=== PATIENT | female | born 1985 | race Caucasian/White ===

== ENCOUNTER → 2017-01-13 | Outpatient (CLI) | payer OTHER ==
[~2017-01-13] MED LIST: CHOL20002 PO; HYDR-3240 PO; IBUP-1222 PO; IRON1TAB60 PO; LORA10CA PO; OMNIPAQUE 350 MG/ML, 75ML BOTTLE ONE; OXYC-302 PO; PREN1TAB27 PO; RANI150T8 PO
== END | disposition home or self-care (01) ==
LOC: CFH 09:06
PROVIDERS: ATTEND Family Medicine
DX: R22.2 Localized swelling, mass and lump, trunk (principal); R53.83 Other fatigue; K91.2 Postsurgical malabsorption, not elsewhere classified; Z68.39 Body mass index [BMI] 39.0-39.9, adult
CPT/HCPCS: 71260; Q9967

== ENCOUNTER 2017-11-20 15:42 | Emergency (ER) | payer OTHER ==
[~2017-11-20] VITALS: Ht 177.8 cm; Wt 135.3 kg
[~2017-11-20 15:42] MED LIST changes: -OMNIPAQUE 350 MG/ML, 75ML BOTTLE ONE; +RANI150T23 PO; -RANI150T8 PO
[2017-11-20] MEDS ORDERED: IRON15TA3 PO (16:20)
[2017-11-20] MEDS ORDERED: MULT-516 PO (16:20)
[2017-11-20] MEDS ORDERED: BIRTH CONTROL (16:21)
[2017-11-20] MEDS ORDERED: LORA1TAB46 PO (16:21)
[2017-11-20] MEDS ORDERED: SODIUM CHLORIDE 0.9% 1,000ML IVBOLUS ONE (16:30)
[2017-11-20] MEDS ORDERED: PROCHLORPERAZINE 5 MG/ML, 2ML IVPush ONE (16:30)
[2017-11-20] MEDS ORDERED: SODIUM CHLORIDE FLUSH 10ML SYR IVF ONE (16:30)
[2017-11-20] MEDS ORDERED: MORPHINE SULFATE 4 MG/ML, 1ML IVPush ONE (16:30)
[2017-11-20] MEDS ORDERED: PANTOPRAZOLE 40 MG IV IVPush ONE (16:30)
[2017-11-20 17:00] LABS: BASOPHILS # (AUTO) 0.09 x10^3/uL (0-0.1); BASOPHILS % (AUTO) 1 % (0-1); EOSINOPHILS # (AUTO) 0.22 x10^3/uL (0-0.4); EOSINOPHILS % (AUTO) 2 % (1-7); LYMPHOCYTES # (AUTO) 2.16 x10^3/uL (1-3.4); LYMPHOCYTES % (AUTO) 16 % (22-44); MD NO; MEAN CORPUSCULAR HEMOGLOBIN 27.6 pg (27.0-34.8); MEAN CORPUSCULAR HGB CONC 33.6 g/dL (32.4-35.8); MEAN CORPUSCULAR VOLUME 82.2 fL (80-100); MEAN PLATELET VOLUME 8.8 fL (7.4-10.4); MONOCYTES % (AUTO) 6 % (2-9); NEUTROPHILS # (AUTO) 10.72 x10^3/uL (1.8-6.8); NEUTROPHILS % (AUTO) 77 % (42-75); PLATELET COUNT 296 x10^3/uL (130-400); RED BLOOD COUNT 4.65 x10^6/uL (3.82-5.3); RED CELL DISTRIBUTION WIDTH 13.3 % (9.6-15.2)
[2017-11-20 17:07] LABS: ALANINE AMINOTRANSFERASE 14 U/L (12-78); ALBUMIN 3.3 g/dL (3.4-5.0); ANION GAP 8 mmol/L (5-15); CALCIUM 8.3 mg/dL (8.5-10.1); CHLORIDE 111 mmol/L (98-107); CREATININE 0.96 mg/dL (0.55-1.02)
[2017-11-20 17:10] LABS: ALKALINE PHOSPHATASE 96 U/L (45-117); BILIRUBIN,TOTAL 0.6 mg/dL (0.2-1.0); TOTAL PROTEIN 6.8 g/dL (6.4-8.2)
[2017-11-20] MEDS ORDERED: MORPHINE SULFATE 4 MG/ML, 1ML ONE (17:32)
[2017-11-20] MEDS ORDERED: PROCHLORPERAZINE 5 MG/ML, 2ML ONE (17:32)
[2017-11-20] MEDS ORDERED: PANTOPRAZOLE 40 MG IV ONE (17:32)
[2017-11-20 18:40] VITALS: BP 149/90
[2017-11-20 18:49] LABS: HCG UR SG 1.008 (1.003-1.030); MICROSCOPIC AUTO
[2017-11-20 18:53] LABS: CULTURE INDICATED? YES
== END 2017-11-20 20:02 | disposition home or self-care (01) ==
LOC: ED 18:15
DX: R10.12 Left upper quadrant pain (principal); R42 Dizziness and giddiness
CPT/HCPCS: 36415; 80053; 81001; 81025; 83690; 85025; 85379; 87086; 93005; 96361; 96374; 96375; 99285; C9113; J0780; J7030

== ENCOUNTER 2019-05-28 14:25 | Outpatient (CLI) | payer OTHER ==
[~2019-05-28 14:25] MED LIST changes: +BIRTH CONTROL; -CHOL20002 PO; +CHOL200052 PO; +IRON15TA3 PO; +LORA1TAB46 PO; +MULT-516 PO; +RANI-467 PO; -RANI150T23 PO
[2019-05-28] MEDS ORDERED: vitamin D PO (14:53)
[2019-05-28] MEDS ORDERED: vitamin B12 PO (14:53)
[2019-05-28] MEDS ORDERED: LORA-702 PO (14:53)
[2019-05-28] MEDS ORDERED: iron PO (14:53)
[2019-05-28 15:19] LABS: BASOPHILS # (AUTO) 0.05 x10^3/uL (0-0.1); BASOPHILS % (AUTO) 0 % (0-1); EOSINOPHILS # (AUTO) 0.11 x10^3/uL (0-0.4); EOSINOPHILS % (AUTO) 1 % (1-7); LYMPHOCYTES # (AUTO) 2.14 x10^3/uL (1-3.4); LYMPHOCYTES % (AUTO) 19 % (22-44); MD NO; MEAN CORPUSCULAR HEMOGLOBIN 27.2 pg (27.0-34.8); MEAN CORPUSCULAR HGB CONC 31.3 g/dL (32.4-35.8); MEAN PLATELET VOLUME 8.8 fL (7.4-10.4); MONOCYTES # (AUTO) 0.59 x10^3/uL (0.2-0.8); MONOCYTES % (AUTO) 5 % (2-9); NEUTROPHILS # (AUTO) 8.13 x10^3/uL (1.8-6.8); NEUTROPHILS % (AUTO) 74 % (42-75); PLATELET COUNT 290 x10^3/uL (130-400); RED BLOOD COUNT 4.74 x10^6/uL (3.82-5.3); RED CELL DISTRIBUTION WIDTH 13.1 % (9.6-15.2)
[2019-05-28 15:26] LABS: MICROSCOPIC NOT IND
[2019-05-28 15:27] LABS: CULTURE INDICATED? NO
[2019-05-28 15:34] LABS: ALANINE AMINOTRANSFERASE 18 U/L (12-78); ALBUMIN 3.3 g/dL (3.4-5.0); ANION GAP 6 mmol/L (5-15); CALCIUM 8.1 mg/dL (8.5-10.1); CHLORIDE 112 mmol/L (98-107); CREATININE 0.98 mg/dL (0.55-1.02)
[2019-05-28 15:38] LABS: ALKALINE PHOSPHATASE 78 U/L (45-117); BILIRUBIN,TOTAL 0.2 mg/dL (0.2-1.0); TOTAL PROTEIN 6.9 g/dL (6.4-8.2)
== END 2019-05-28 23:59 | disposition home or self-care (01) ==
LOC: STAR 14:25
PROVIDERS: ATTEND Obstetrics & Gynecology
DX: Z01.818 Encounter for other preprocedural examination (principal); N92.0 Excessive and frequent menstruation with regular cycle
CPT/HCPCS: 36415; 80053; 81003; 84702; 85025

== ENCOUNTER 2019-06-12 05:28 | Day surgery (SDC) | payer OTHER ==
[~2019-06-12] VITALS: Ht 177.8 cm; Wt 130.6 kg
[~2019-06-12 05:28] MED LIST changes: +LORA-702 PO; +iron PO; +vitamin B12 PO; +vitamin D PO
[2019-06-12 06:31] VITALS: BP 135/97
[2019-06-12] MEDS ORDERED: LACTATED RINGERS 1,000 ML IV SCH (06:34)
[2019-06-12] MEDS ORDERED: BUPR-86 PO (06:36)
[2019-06-12] MEDS ORDERED: SILVER NITRATE STICK TP ONE (06:53)
[2019-06-12] MEDS ORDERED: BUPIVACAINE/PF-EPI 0.25% 1:200K ONE (06:53)
[2019-06-12 07:07] LABS: HCG UR SG 1.027 (1.003-1.030)
[2019-06-12] MEDS ORDERED: MIDAZOLAM 1 MG/ML, 2ML ONE (07:24)
[2019-06-12] MEDS ORDERED: FENTANYL PF 250 MCG/5ML ONE (07:24)
[2019-06-12] MEDS ORDERED: PROPOFOL 50 ML ONE ×3 (07:24→08:50)
[2019-06-12] MEDS ORDERED: GABAPENTIN 300 MG CAPSULE PO ONE (07:30)
[2019-06-12] MEDS ORDERED: ONDANSETRON ODT 8 MG PO ONE (07:30)
[2019-06-12] MEDS ORDERED: ACETAMINOPHEN 500 MG TABLET PO ONE (07:30)
[2019-06-12] MEDS ORDERED: SCOPOLAMINE PATCH, 1.5MG PATCH.TD72 TD ONE (07:30)
[2019-06-12] MEDS ORDERED: ONDANSETRON 2MG/ML, 2ML IV PRN (09:00)
[2019-06-12] MEDS ORDERED: ALBUTEROL SULFATE 2.5 MG/3 ML NPPB PRN (09:00)
[2019-06-12] MEDS ORDERED: PROCHLORPERAZINE 5 MG/ML, 2ML IV PRN (09:00)
[2019-06-12] MEDS ORDERED: OXYcodone 5 MG/5 ML ORAL.SOL UDC PO PRN (09:00)
[2019-06-12] MEDS ORDERED: LORazepam 2 MG/ML, 1ML IVPush PRN (09:00)
[2019-06-12] MEDS ORDERED: FENTANYL PF 100 MCG/2ML ONE ×2 (09:22→09:44)
[2019-06-12] MEDS: FENTANYL PF 100 MCG/2ML IV PRN ×3 (09:25→09:46)
[2019-06-12] MEDS ORDERED: OXYcodone 5 MG/5 ML ORAL.SOL UDC ONE (09:37)
[2019-06-12] MEDS ORDERED: ONDANSETRON 2MG/ML, 2ML ONE (09:52)
[2019-06-12] MEDS ORDERED: KETOROLAC 30 MG/1 ML IVPush PRN (10:30)
[2019-06-12] MEDS ORDERED: HYDROmorphone 2 MG/ML, 1ML IVPush PRN (10:30)
[2019-06-12] MEDS ORDERED: PROMETHAZINE 25 MG SUPP PR ONE (10:30)
== END 2019-06-12 12:15 | disposition home or self-care (01) ==
LOC: OUT 05:28
PROVIDERS: ATTEND Obstetrics & Gynecology
DX: Z30.2 Encounter for sterilization (principal); N92.0 Excessive and frequent menstruation with regular cycle; N94.6 Dysmenorrhea, unspecified; E66.01 Morbid (severe) obesity due to excess calories; F32.9 Major depressive disorder, single episode, unspecified; F41.9 Anxiety disorder, unspecified; J45.909 Unspecified asthma, uncomplicated; D64.9 Anemia, unspecified; Z79.1 Long term (current) use of non-steroidal anti-inflammatories (NSAID); Z79.899 Other long term (current) drug therapy; Z88.0 Allergy status to penicillin; Z88.1 Allergy status to other antibiotic agents; Z88.5 Allergy status to narcotic agent; Z90.49 Acquired absence of other specified parts of digestive tract; Z98.84 Bariatric surgery status; Z98.890 Other specified postprocedural states; Z83.3 Family history of diabetes mellitus; Z83.42 Family history of familial hypercholesterolemia; Z82.49 Family history of ischemic heart disease and other diseases of the circulatory system
CPT/HCPCS: 36415; 58563; 58670; 81025; 86850; 86900; 88302; J1885; J2250; J2405; J2704; J3010; J7120; Q0162